=== PATIENT | female | born 1955 | race Caucasian/White ===

== ENCOUNTER → 2017-12-21 | Outpatient (CLI) | payer OTHER | LOC: M.LAB 06:18 | DX: E03.9 Hypothyroidism, unspecified (principal) ==

== ENCOUNTER → 2018-04-19 | Outpatient (CLI) | payer OTHER ==
[2018-04-19 07:05] LABS: HEMATOCRIT 37.2 % (37.0-47.0); HEMOGLOBIN 12.7 gm/dL (12.0-15.0); MCH 30.4 pg (26.0-34.0); MCV 89.5 fL (80.0-100.0); MPV 7.6 fl. (7.2-11.1); RBC 4.16 mil/uL (4.20-5.00); RDW-CV 13.3 % (10.5-14.5); WBC 4.8 thou/uL (4.0-11.0)
[2018-04-19 07:18] LABS: ALBUMIN 3.5 g/dL (3.4-5.0); ALKALINE PHOSPHATASE 88 U/L (46-116); ANION GAP 5 mmol/L (7-16); BUN 22 mg/dL (7-18); CALCIUM 8.5 mg/dL (8.5-10.1); CHLORIDE 105 mmol/L (98-107); CHOLESTEROL 201 mg/dL (<200); CO2 31 mmol/L (21-32); CREATININE 0.8 mg/dL (0.6-1.3); GLUCOSE 107 mg/dL (70-99); HDL CHOLESTEROL 78 mg/dL (>40); LDL CHOLESTEROL 111 mg/dL (<100); POTASSIUM 4.1 mmol/L (3.5-5.1); SGOT 30 U/L (15-37); SGPT 28 U/L (30-65); SODIUM 141 mmol/L (136-145); TC:HDL 2.6 Ratio (Not establshd); TOTAL BILIRUBIN 0.4 mg/dL (<0.1-1.0); TOTAL PROTEIN 7.1 g/dL (6.4-8.2); TRIGLYCERIDE 64 mg/dL (<150); VLDL 13 mg/dL (<40)
[2018-04-19 07:20] LABS: SERUM ASSESSMENT Clear
== END ==
LOC: M.LAB 06:47
PROVIDERS: Internal Medicine
DX: E78.5 Hyperlipidemia, unspecified (principal); R53.83 Other fatigue; E03.9 Hypothyroidism, unspecified

== ENCOUNTER → 2018-05-28 | Outpatient (CLI) | payer OTHER ==
[2018-05-28 06:54] LABS: HEMATOCRIT 37.4 % (37.0-47.0); HEMOGLOBIN 12.9 gm/dL (12.0-15.0); MCH 30.7 pg (26.0-34.0); MCHC 34.6 g/dL (28.0-37.0); MCV 88.8 fL (80.0-100.0); MPV 7.3 fl. (7.2-11.1); RBC 4.22 mil/uL (4.20-5.00); RDW-CV 13.2 % (10.5-14.5); WBC 4.8 thou/uL (4.0-11.0)
[2018-05-28 07:08] LABS: ALBUMIN 3.5 g/dL (3.4-5.0); ALKALINE PHOSPHATASE 90 U/L (46-116); ANION GAP 6 mmol/L (7-16); BUN 21 mg/dL (7-18); CALCIUM 8.3 mg/dL (8.5-10.1); CHLORIDE 103 mmol/L (98-107); CHOLESTEROL 199 mg/dL (<200); CO2 30 mmol/L (21-32); CREATININE 0.8 mg/dL (0.6-1.3); GLUCOSE 115 mg/dL (70-99); HDL CHOLESTEROL 79 mg/dL (>40); LDL CHOLESTEROL 102 mg/dL (<100); POTASSIUM 4.2 mmol/L (3.5-5.1); SGOT 29 U/L (15-37); SGPT 29 U/L (30-65); SODIUM 139 mmol/L (136-145); TC:HDL 2.5 Ratio (Not establshd); TOTAL BILIRUBIN 0.4 mg/dL (<0.1-1.0); TOTAL PROTEIN 7.1 g/dL (6.4-8.2); TRIGLYCERIDE 91 mg/dL (<150); VLDL 18 mg/dL (<40)
[2018-05-28 07:09] LABS: SERUM ASSESSMENT Clear
== END ==
LOC: M.LAB 06:41
PROVIDERS: Internal Medicine
DX: E78.5 Hyperlipidemia, unspecified (principal); R53.83 Other fatigue

== ENCOUNTER → 2018-08-29 | Outpatient (CLI) | payer OTHER | LOC: M.RAD 15:51 | DX: M19.032 Primary osteoarthritis, left wrist (principal) ==

== ENCOUNTER 2019-05-06 10:22 | Emergency (ER) | payer OTHER ==
[~2019-05-06] VITALS: Ht 162.6 cm; Wt 81.7 kg
[2019-05-06 10:27] VITALS: BP 142/74
[2019-05-06] MEDS ORDERED: SYNTHROID175 MCG PO (10:29)
[2019-05-06] MEDS ORDERED: PROZAC10 MG PO (10:30)
[2019-05-06] MEDS ORDERED: KEFLEX250 MG PO (11:15)
== END 2019-05-06 11:00 | disposition home or self-care (01) ==
LOC: M.ERS 10:22
DX: R51 Headache (principal); R09.81 Nasal congestion; H92.03 Otalgia, bilateral; Z87.09 Personal history of other diseases of the respiratory system

== ENCOUNTER 2021-05-15 13:38 | Emergency (ER) | payer OTHER ==
[~2021-05-15] VITALS: Ht 165.1 cm; Wt 86.2 kg
[~2021-05-15 13:38] MED LIST: KEFLEX250 MG PO; PROZAC10 MG PO; SYNTHROID175 MCG PO
[2021-05-15] MEDS ORDERED: IBUPROFEN 600600 M1 PO (16:21)
[2021-05-15] MEDS ORDERED: NORCO5 PO ×2 (16:21→16:25)
[2021-05-15 16:38] VITALS: BP 109/78
== END 2021-05-15 16:38 | disposition home or self-care (01) ==
LOC: M.ERS 13:38
DX: S52.592A Other fractures of lower end of left radius, initial encounter for closed fracture (principal); S62.002A Unspecified fracture of navicular [scaphoid] bone of left wrist, initial encounter for closed fracture; Z79.899 Other long term (current) drug therapy; W01.0XXA Fall on same level from slipping, tripping and stumbling without subsequent striking against object, initial encounter; Y93.89 Activity, other specified; Y92.89 Other specified places as the place of occurrence of the external cause; Y99.9 Unspecified external cause status